=== PATIENT | male | born 1995 | race African-American/Black ===

== ENCOUNTER 2018-08-09 09:09 | Inpatient (IN) | payer OTHER ==
[2018-08-09] MEDS ORDERED: ONDANSETRON 4 MG/2 ML VIAL IVP STA (09:42)
[2018-08-09] MEDS ORDERED: SODIUM CHLORIDE 0.9% 1,000 ML IV STA (09:42)
[2018-08-09] MEDS ORDERED: PANTOPRAZOLE 40 MG/10 ML VIAL IVP STA (09:43)
--- NOTE | 2018-08-09 10:29 | XR ---
EXAMINATION TYPE: XR chest 2V DATE OF EXAM: 08/09/2018 HISTORY: pain. REFERENCE: NONE. FINDINGS: The lungs are clear. Pleural space are clear. The heart is not enlarged. The mediastinal co ntour is somewhat lobulated. It would be difficult to exclude a right-sided aortic arch based upon th is study. IMPRESSION: 1. NO ACUTE INTRATHORACIC ABNORMALITY. 2. IT WOULD BE DIFFICULT TO EXCLUDE A RIGHT-SIDED AORTIC ARCH.
--- NOTE | 2018-08-09 11:53 | ED ---
Chest Pain HPI - General Chief Complaint: Chest Pain Stated Complaint: Chest pain Time Seen by Provider: 08/09/18 09:18 Source: patient, EMS, RN notes reviewed, old records reviewed Mode of arrival: EMS Limitations: no limitations - History of Present Illness Initial Comments: Patient is a 23-year-old male presents emergency department today with multiple episodes of vomiting starting at midnight last night. He states that during that time he is having some episodes of chest pain. He states it persisted. He called EMS and arrives. Patient appears in no distress. Patient states that he had apple these last night for dinner and did have some alcoholic drinks. Patient states that he has had a history of acid reflux but states this pain lasted about different than typical acid reflux like pain. Patient states that he has had no significant past medical history. He denies any hematemesis. - Related Data Home Medications Medication Instructions Recorded Confirmed No Known Home Medications 08/09/18 08/09/18 Allergies Allergy/AdvReac Type Severity Reaction Status Date / Time No Known Allergies Allergy Verified 08/09/18 09:34 Review of Systems ROS Statement: Those systems with pertinent positive or pertinent negative responses have been documented in the HPI. ROS Other: All systems not noted in ROS Statement are negative. EKG Findings - EKG Comments: EKG Findings:: Sinus tachycardia, right arterial enlargement. T wave abnormality , consider inferior ischemia. Abnormal EKg. Vent rate 112 bpm. ME interval 120ms. 76 ms QRS duration. QTC 302 412 ms. Past Medical History Past Medical History: No Reported History History of Any Multi-Drug Resistant Organisms: None Reported Past Surgical History: No Surgical Hx Reported Past Psychological History: Anxiety Past Alcohol Use History: None Reported, Occasional Past Drug Use History: Marijuana General Exam - General Exam Comments Initial Comments: 23-year-old male. Alert and oriented. No distress. Limitations: no limitations General appearance: alert, in no apparent distress Head exam: Present: atraumatic, normocephalic, normal inspection Eye exam: Present: normal appearance, PERRL, EOMI. Absent: scleral icterus, conjunctival injection, periorbital swelling ENT exam: Present: normal exam Neck exam: Present: normal inspection. Absent: tenderness, meningismus, lymphadenopathy Respiratory exam: Present: normal lung sounds bilaterally. Absent: respiratory distress, wheezes, rales, rhonchi, stridor Cardiovascular Exam: Present: regular rate, normal rhythm, normal heart sounds. Absent: systolic murmur, diastolic murmur, rubs, gallop, clicks GI/Abdominal exam: Present: soft, normal bowel sounds. Absent: distended, tenderness, guarding, rebound, rigid Extremities exam: Present: normal inspection, full ROM, normal capillary refill. Absent: tenderness, pedal edema, joint swelling, calf tenderness Back exam: Present: normal inspection Neurological exam: Present: alert, oriented X3, CN II-XII intact Psychiatric exam: Present: normal affect, normal mood Course Vital Signs 08/09/18 08/09/18 08/09/18 09:28 09:30 10:30 Temperature 98.8 F Pulse Rate 107 H 105 H 97 Pulse Rate [ Pulse Oximetery ] Respiratory 18 18 18 Rate Blood Pressure 143/99 124/94 126/81 Blood Pressure [Right Arm] O2 Sat by Pulse 98 100 96 Oximetry 08/09/18 08/09/18 08/09/18 11:29 20:00 21:18 Temperature 98.0 F 98.0 F Pulse Rate 74 Pulse Rate [ 60 72 Pulse Oximetery ] Respiratory 18 18 18 Rate Blood Pressure 126/75 Blood Pressure 156/77 139/73 [Right Arm] O2 Sat by Pulse 98 96 95 Oximetry Chest Pain MDM - MDM Paper chart completed, patient placed inpatient for abnormal EKG, positive troponin. Disposition Clinical Impression: NSTEMI (non-ST elevated myocardial infarction), Nausea & vomiting Disposition: ADMITTED IP TO THIS HOSP Condition: Stable Time of Disposition: 23:50
[2018-08-09] MEDS ORDERED: HEPARIN SODIUM,PORCINE 5,000 UNIT/ML 1 ML VIAL IV ONE (21:37)
[2018-08-09] MEDS ORDERED: HEPARIN SODIUM,PORCINE 5,000 UNIT/ML 1 ML VIAL IV PRN (21:37)
[2018-08-09 22:58] VITALS: BMI 25.7
[2018-08-09] MEDS: HEPARIN SOD,PORK IN 0.45% NACL 25,000 UNIT in 0.45% NACL 1 250ML.BAG IV SCH (23:15)
[2018-08-09] MEDS: ASPIRIN 81 MG PO SCH (23:28)
[2018-08-10 00:52] LABS: Basophils % (A) 1 %; Eosinophils # (A) 0.1 k/uL (0-0.7); Eosinophils % (A) 1 %; HCT 43.8 % (39.0-53.0); Lymphocytes # (A) 1.1 k/uL (1.0-4.8); Lymphocytes % (A) 19 %; MCH 29.2 pg (25.0-35.0); MCV 91.5 fL (80.0-100.0); Mean Platelet Volume 7.5; Monocytes # (A) 0.4 k/uL (0-1.0); Monocytes % (A) 8 %; Neutrophils # (A) 3.9 k/uL (1.3-7.7); Neutrophils % (A) 69 %; Platelet Count 194 k/uL (150-450); RBC 4.79 m/uL (4.30-5.90); RDW 12.6 % (11.5-15.5); WBC 5.7 k/uL (3.8-10.6)
[2018-08-10 01:08] LABS: INR 1.2 (<1.2); Prothrombin Time 12.4 sec (9.0-12.0)
[2018-08-10] MEDS: HEPARIN SOD,PORK IN 0.45% NACL 25,000 UNIT in 0.45% NACL 1 250ML.BAG IV SCH (02:22)
--- NOTE | 2018-08-10 03:33 | HP ---
HISTORY AND PHYSICAL DATE OF ADMISSION: 08/09/2018 DATE OF SERVICE: 08/09/2018 PRESENTING COMPLAINT: Weak and tired. HISTORY OF PRESENTING COMPLAINT: This is a pleasant 23-year-old patient who follows with Dr. Cosme in [place]. The patient is in rather good health, exercises, goes to the gym. Last night patient had gone to eat at [employer], ate chicken wings with some barbecue sauce. Also had a couple of drinks and that he did around 9 o'clock, went to bed. At 12:30 pm this morning he started vomiting and in the next 3-4 hours he did vomit about 3 times quite a bit. In the morning decided to go into work and when he got there was feeling numb all over in his face, arms, legs, just kind of felt tired. Then asked his dad to bring him into the hospital. There was no precordial pain or shortness of breath. The patient was first taken to his physician's office where they did an EKG and he was sent down here. The patient was found to have some abnormal EKG changes. Troponin was 0.088 and he was put on IV heparin and admitted. Cardiology was told to be consulted from the ER. The patient just feels tired. No further symptoms when I saw him this evening. The computers have been down, cannot find another set of troponins which is being ordered. Computers have been down since this morning. REVIEW OF SYSTEMS: CONSTITUTIONAL: Tired. HEENT: None. RESPIRATORY: None. CARDIOVASCULAR: None. GASTROINTESTINAL: As above. GENITOURINARY: None. MUSCULOSKELETAL: None. DERMATOLOGIC: None. HEMATOLOGIC: None. LYMPHATICS: None. PSYCHIATRY none. NEUROLOGICAL: As above. All symptoms have resolved. Additionally, patient did have an Nepali sub around 3:00 pm, kept it down and simply feels hungry now. PAST MEDICAL HISTORY: None. SOCIAL HISTORY: Patient works for rescue team. Does marijuana 1 joint a day. Alcohol occasionally. Lives with a roommate. FAMILY HISTORY: Reviewed, noncontributory. HOME MEDICATIONS: None. ALLERGIES: None. PHYSICAL EXAMINATION: Vital signs on presentation, temperature 98.8, pulse 107, respiration 18, blood pressure 124/94, pulse ox 100 percent on room air. GENERAL APPEARANCE: Average build, lying in bed, comfortable. EYES: Pupils equal. Conjunctivae normal. HEENT: External appearance of ears and nose normal. Oral cavity normal. NECK: JVD not raised. Mass not palpable. Respiratory effort normal. LUNGS: Clear. CARDIOVASCULAR: 1st and 2nd sounds normal. No edema. ABDOMEN: Soft, nontender. Liver and spleen not palpable. LYMPHATICS: No lymph node palpable in neck and axilla. PSYCHIATRY: Alert and oriented x3. Mood and affect normal. NEUROLOGICAL: Pupils equal. Cranial nerves grossly intact. Power and sensation grossly intact. INVESTIGATIONS: As reviewed by me, EKG showed some pointed T-waves. Labs obtained from the nurse, as the computers have been down since this morning, white count 6.5, hemoglobin 15.5, platelets 193. Potassium 4.1, BUN 20, creatinine 1.19. ASSESSMENT: 1. This is a patient who vomited 4 times over the night, was feeling rather tired this morning, numbness all over and was found to have some EKG changes. Troponin was 0.088. This is a patient who at the baseline is extremely active, works out at the gym, and has not had any cardiac symptoms like palpitations, syncope, or chest pressure. His manifestations are most likely from dehydration from vomiting and troponin leak from the same. 2. Acute gastroenteritis, likely viral or food poisoning, self limiting. 3. Troponin leak likely from dehydration. 4. Need to rule out structural heart disease. We will do 2D echocardiogram. Cardiology was consulted from the ER. 5. Recreational marijuana use. PLAN: Care was discussed with the patient. Questions were answered. We will obtain more sets of troponin, 2D echocardiogram and Cardiology opinion. The patient was put on IV heparin in the ER. Will put the patient on a baby aspirin. Care was discussed. MMODL / IJN: [id number] /
[2018-08-10 05:30] LABS: Basophils % (A) 0 %; Eosinophils % (A) 1 %; HCT 54.3 % (39.0-53.0); HGB 17.6 gm/dL (13.0-17.5); Lymphocytes # (A) 0.5 k/uL (1.0-4.8); Lymphocytes % (A) 7 %; MCH 29.9 pg (25.0-35.0); MCHC 32.3 g/dL (31.0-37.0); MCV 92.6 fL (80.0-100.0); Mean Platelet Volume 8.6; Monocytes # (A) 0.5 k/uL (0-1.0); Monocytes % (A) 7 %; Neutrophils # (A) 6.4 k/uL (1.3-7.7); Neutrophils % (A) 85 %; Platelet Count 219 k/uL (150-450); RBC 5.87 m/uL (4.30-5.90); RDW 12.7 % (11.5-15.5); WBC 7.6 k/uL (3.8-10.6)
[2018-08-10 07:18] LABS: Basophils % (A) 0 %; Eosinophils % (A) 0 %; HCT 48.2 % (39.0-53.0); HGB 15.5 gm/dL (13.0-17.5); Lymphocytes # (A) 0.6 k/uL (1.0-4.8); Lymphocytes % (A) 9 %; MCH 29.8 pg (25.0-35.0); MCHC 32.1 g/dL (31.0-37.0); MCV 92.8 fL (80.0-100.0); Mean Platelet Volume 8.2; Monocytes # (A) 0.4 k/uL (0-1.0); Monocytes % (A) 6 %; Neutrophils # (A) 5.4 k/uL (1.3-7.7); Neutrophils % (A) 83 %; Platelet Count 193 k/uL (150-450); RDW 12.6 % (11.5-15.5); WBC 6.5 k/uL (3.8-10.6)
[2018-08-10 07:38] LABS: Basophils % (A) 1 %; Eosinophils # (A) 0.1 k/uL (0-0.7); Eosinophils % (A) 2 %; HCT 45.3 % (39.0-53.0); HGB 14.2 gm/dL (13.0-17.5); Lymphocytes # (A) 1.1 k/uL (1.0-4.8); Lymphocytes % (A) 23 %; MCH 29.8 pg (25.0-35.0); MCHC 31.3 g/dL (31.0-37.0); Mean Platelet Volume 8.3; Monocytes # (A) 0.5 k/uL (0-1.0); Monocytes % (A) 11 %; Neutrophils # (A) 2.8 k/uL (1.3-7.7); Neutrophils % (A) 61 %; Platelet Count 169 k/uL (150-450); RBC 4.77 m/uL (4.30-5.90); RDW 12.8 % (11.5-15.5); WBC 4.6 k/uL (3.8-10.6)
[2018-08-10 07:57] LABS: ALT 31 U/L (21-72); AST 32 U/L (17-59); Albumin 4.4 g/dL (3.5-5.0); Alkaline Phosphatase 59 U/L (38-126); Amylase 63 U/L (30-110); Anion Gap 10 mmol/L; Blood Urea Nitrogen 20 mg/dL (9-20); Calcium 9.5 mg/dL (8.4-10.2); Carbon Dioxide 25 mmol/L (22-30); Chloride 105 mmol/L (98-107); Glucose 82 mg/dL (74-99); Lipase 35 U/L (23-300); Potassium 4.1 mmol/L (3.5-5.1); Sodium 140 mmol/L (137-145); Total Bilirubin 1.2 mg/dL (0.2-1.3); Total Protein 7.2 g/dL (6.3-8.2)
[2018-08-10 08:01] LABS: Troponin I 0.088 ng/mL (0.000-0.034)
[2018-08-10 08:03] LABS: Creatine Kinase MB 1.6 ng/mL (0.0-2.4)
[2018-08-10 08:25] LABS: Albumin 3.7 g/dL (3.5-5.0); Calcium 9.2 mg/dL (8.4-10.2); Potassium 4.5 mmol/L (3.5-5.1); Total Bilirubin 0.7 mg/dL (0.2-1.3); Total Protein 6.3 g/dL (6.3-8.2)
[2018-08-10] MEDS: ASPIRIN 81 MG PO SCH (09:09)
--- NOTE | 2018-08-10 14:01 | P.CRDCN ---
History of Present Illness Consult date: 08/10/18 Chief complaint: Chest pain History of present illness: This is a pleasant 23-year-old gentleman with no significant past medical history who was in good fit and exercises on regular basis presented to the hospital complaining of nausea and vomiting as well as chest discomfort. The patient was in his usual state of health until last night when he ate dinner outside and went to bed around 10:00 last night but he woke up right after midnight complaining of nausea and vomiting. He did vomit at least 3 times according to him. Subsequently the patient went to sleep and woke up in the morning not feeling well. He was feeling weak, tired, fatigued, and 8 over his body. Beside that he was experiencing discomfort in the chest, as a sharp kind of discomfort, without any radiation to the arm or neck or shoulders and without any associated symptoms of sweating, or syncope. Because of that he decided to come to the emergency room. In the ER, the patient was found to be in acute renal failure. His creatinine was slightly incurvated. Also the troponin was checked and came in to be slightly abnormal and below 1. The EKG did not show any evidence of significant for ischemic ST or T-wave abnormalities beside sinus tachycardia. The patient was admitted to the hospital and he was started on aspirin as well as heparin. The patient is not aware of any prior cardiac history. No diabetes or hypertension or dyslipidemia. He smoked marijuana on a regular basis. No immediate family member with coronary artery disease. Past Medical History Past Medical History: No Reported History History of Any Multi-Drug Resistant Organisms: None Reported Past Surgical History: No Surgical Hx Reported Past Anesthesia/Blood Transfusion Reactions: No Reported Reaction Past Psychological History: Anxiety Past Alcohol Use History: None Reported, Occasional Past Drug Use History: Marijuana Medications and Allergies Home Medications Medication Instructions Recorded Confirmed Type No Known Home Medications 08/09/18 08/09/18 History Allergies Allergy/AdvReac Type Severity Reaction Status Date / Time No Known Allergies Allergy Verified 08/09/18 09:34 Physical Exam Vitals: Vital Signs Temp Pulse Resp BP Pulse Ox 08/10/18 12:00 70 20 132/73 97 08/10/18 08:00 98.2 F 62 17 127/61 100 08/10/18 04:00 97.9 F 71 18 121/79 99 08/09/18 23:54 72 18 08/09/18 23:51 98.0 F 72 18 139/73 95 08/09/18 21:18 98.0 F 72 18 139/73 95 08/09/18 20:00 98.0 F 60 18 156/77 96 Intake and Output 08/09/18 08/10/18 08/10/18 22:59 06:59 14:59 Intake Total 150 Balance 150 Intake: Oral 150 Other: Voiding Method Toilet Toilet # Voids 1 2 Weight 88.2 kg - Constitutional General appearance: no acute distress - Respiratory Respiratory: bilateral: CTA - Cardiovascular Rhythm: regular Heart sounds: normal: S1, S2 Results 08/10/18 06:41 08/10/18 06:41 Cardiac Enzymes 08/09/18 08/09/18 08/10/18 Range/Units 12:23 12:23 00:40 AST 32 (17-59) U/L CK-MB (CK-2) 1.6 (0.0-2.4) ng/mL Troponin I 0.088 H* 0.077 H* (0.000-0.034) ng/mL 08/10/18 08/10/18 Range/Units 06:41 06:41 AST 28 (17-59) U/L CK-MB (CK-2) (0.0-2.4) ng/mL Troponin I 0.047 H* (0.000-0.034) ng/mL Coagulation 08/10/18 Range/Units 00:40 PT 12.4 H (9.0-12.0) sec APTT 51.0 H (22.0-30.0) sec CBC 08/09/18 08/09/18 08/10/18 Range/Units 09:40 12:23 00:40 WBC 6.5 7.6 5.7 (3.8-10.6) k/uL RBC 5.20 5.87 4.79 (4.30-5.90) m/uL Hgb 15.5 17.6 H 14.0 D (13.0-17.5) gm/dL Hct 48.2 54.3 H 43.8 (39.0-53.0) % Plt Count 193 219 194 (150-450) k/uL 08/10/18 Range/Units 06:41 WBC 4.6 (3.8-10.6) k/uL RBC 4.77 (4.30-5.90) m/uL Hgb 14.2 (13.0-17.5) gm/dL Hct 45.3 (39.0-53.0) % Plt Count 169 (150-450) k/uL Comprehensive Metabolic Panel 08/09/18 08/10/18 Range/Units 12:23 06:41 Sodium 140 137 (137-145) mmol/L Potassium 4.1 4.5 (3.5-5.1) mmol/L Chloride 105 106 (98-107) mmol/L Carbon Dioxide 25 25 (22-30) mmol/L BUN 20 21 H (9-20) mg/dL Creatinine 1.19 1.37 H (0.66-1.25) mg/dL Glucose 82 86 (74-99) mg/dL Calcium 9.5 9.2 (8.4-10.2) mg/dL AST 32 28 (17-59) U/L ALT 31 24 (21-72) U/L Alkaline Phosphatase 59 40 (38-126) U/L Total Protein 7.2 6.3 (6.3-8.2) g/dL Albumin 4.4 3.7 (3.5-5.0) g/dL Current Medications Generic Name Dose Route Start Last Admin Trade Name Freq PRN Reason Stop Dose Admin Aspirin 81 mg 08/09/18 23:00 08/10/18 09:09 Aspirin PO 81 mg DAILY [facility] Administration Heparin Sodium (Porcine) 0 unit 08/09/18 21:37 Heparin IV PER PROTOCOL PRN Low PTT Protocol Heparin Sodium/Sodium Chloride 250 mls @ 9.97 mls/hr 08/09/18 21:45 08/10/18 02:22 25,000 unit/ Sodium Chloride IV 11 units/kg/hr .Q24H BRANDO 9.97 mls/hr Administration Protocol 11 UNITS/KG/HR Intake and Output 08/09/18 08/10/18 08/10/18 22:59 06:59 14:59 Intake Total 150 Balance 150 Intake: Oral 150 Other: Voiding Method Toilet Toilet # Voids 1 2 Weight 88.2 kg 08/10/18 06:41 08/10/18 06:41 Assessment and Plan Assessment: Assessment #1 nausea and vomiting which has improved #2 dehydration secondary to the above #3 acute renal failure secondary to the above #4 mildly abnormal cardiac enzymes. #5 chest discomfort seems to be atypical Plan #1 the chest discomfort could be related to the recurrent vomiting. #2 severe coronary artery disease is unlikely giving his age and the absence of any risk factors. #3 the abnormal troponin is likely secondary to acute renal failure #4 we'll continue the patient on the current medical regimen which include the heparin as well as aspirin #5 obtain an echocardiogram was Doppler #6 follow-up with the patient. Thank you for allowing us participate in his care and we will continue following up with the
--- NOTE | 2018-08-11 00:07 | PN ---
PROGRESS NOTE DATE OF SERVICE: 08/10/2018. PRESENTING COMPLAINT: Tired. INTERVAL HISTORY: This patient presented with abnormal EKG, some chest pain, some troponin leak. At this point felt to be from acute renal failure from profuse vomiting. The patient did tolerate some diet, had some short-lived sharp chest pain. Has been out of bed. The patient's family is at the bedside. REVIEW OF SYSTEMS: Done for constitutional, cardiovascular, GI, pulmonary; relevant findings as above. CURRENT MEDICATIONS: Include IV heparin, aspirin. PHYSICAL EXAMINATION: Temperature 98.2, pulse 72, respirations 17, blood pressure 127/61, pulse 100 percent on room air. GENERAL APPEARANCE: Lying in bed comfortable. EYES: Pupils equal. Conjunctivae normal. NECK: JVD not raised. Mass not palpable. Respiratory effort normal. LUNGS: Clear. CARDIOVASCULAR: 1st and 2nd heart sounds normal. ABDOMEN: Soft nontender. Liver and spleen not palpable. PSYCHIATRY: Alert and oriented x3. Mood and affect normal. INVESTIGATIONS: White count 4.6. BUN 21, creatinine 1.37. Troponin 0.08, 0.077, 0.047. ASSESSMENT: 1. Renal failure likely from dehydration from vomiting. 2. Acute viral gastroenteritis. May have caused an element of viral myocarditis, explaining his symptoms of positive troponins. 3. Positive troponin, can be from above. 4. Pending 2D echocardiogram. 5. Recreational marijuana use. PLAN: At this point, we will send off for UA to look for any abnormal cells in the UA. Also will do urine drug screen. 2D echocardiogram is pending. Care was discussed with the patient's mother and also Dr. Johnson earlier in the day. We will give patient IV fluids and repeat electrolytes in the morning. MMODL / IJN: [id number] /
[2018-08-11] MEDS: LACTATED RINGERS 1,000 ML IV SCH ×4 (00:30→23:57)
[2018-08-11 04:52] VITALS: RESP 16
[2018-08-11 06:44] LABS: Anion Gap 4 mmol/L; Blood Urea Nitrogen 15 mg/dL (9-20); Calcium 9.1 mg/dL (8.4-10.2); Carbon Dioxide 28 mmol/L (22-30); Chloride 107 mmol/L (98-107); Glucose 91 mg/dL (74-99); Sodium 139 mmol/L (137-145)
[2018-08-11 07:07] LABS: Basophils % (A) 1 %; Eosinophils # (A) 0.1 k/uL (0-0.7); Eosinophils % (A) 2 %; HCT 41.9 % (39.0-53.0); HGB 13.9 gm/dL (13.0-17.5); Lymphocytes # (A) 1.2 k/uL (1.0-4.8); Lymphocytes % (A) 36 %; MCH 30.5 pg (25.0-35.0); MCHC 33.3 g/dL (31.0-37.0); MCV 91.5 fL (80.0-100.0); Mean Platelet Volume 8.1; Monocytes # (A) 0.3 k/uL (0-1.0); Monocytes % (A) 10 %; Neutrophils # (A) 1.7 k/uL (1.3-7.7); Neutrophils % (A) 48 %; Platelet Count 173 k/uL (150-450); RBC 4.57 m/uL (4.30-5.90); RDW 12.5 % (11.5-15.5); WBC 3.5 k/uL (3.8-10.6)
[2018-08-11] MEDS: ASPIRIN 81 MG PO SCH (08:30)
--- NOTE | 2018-08-11 09:31 | P.PN ---
Subjective Progress Note Date: 08/11/18 Principal diagnosis: Abnormal cardiac enzymes This is a pleasant 23-year-old gentleman with no significant past medical history who was in good fit and exercises on regular basis presented to the hospital complaining of nausea and vomiting as well as chest discomfort. The patient was in his usual state of health until last night when he ate dinner outside and went to bed around 10:00 last night but he woke up right after midnight complaining of nausea and vomiting. He did vomit at least 3 times according to him. Subsequently the patient went to sleep and woke up in the morning not feeling well. He was feeling weak, tired, fatigued, and 8 over his body. Beside that he was experiencing discomfort in the chest, as a sharp kind of discomfort, without any radiation to the arm or neck or shoulders and without any associated symptoms of sweating, or syncope. Because of that he decided to come to the emergency room. In the ER, the patient was found to be in acute renal failure. His creatinine was slightly incurvated. Also the troponin was checked and came in to be slightly abnormal and below 1. The EKG did not show any evidence of significant for ischemic ST or T-wave abnormalities beside sinus tachycardia. The patient was admitted to the hospital and he was started on aspirin as well as heparin. The patient is not aware of any prior cardiac history. No diabetes or hypertension or dyslipidemia. He smoked marijuana on a regular basis. No immediate family member with coronary artery disease. On follow-up with the patient today, 08/11/2018, the patient continues to have mild chest discomfort about 2/10 in intensity. He continues to be on aspirin as well as heparin IV. An echocardiogram was performed and we'll follow-up on that. I discussed with the patient possible need for coronary angiogram Objective - Vital Signs Vital signs: Vital Signs Temp 97.5 F L 08/11/18 08:20 Pulse 78 08/11/18 08:20 Resp 16 08/11/18 08:20 BP 123/77 08/11/18 08:20 Pulse Ox 100 08/11/18 08:20 Intake & Output 08/10/18 08/11/18 08/11/18 18:59 06:59 18:59 Intake Total 150 640 Balance 150 640 Weight 88.2 kg Intake: Intake, IV Titration 400 Amount Heparin Sod,Pork in 0.45% 100 NaCl 25,000 unit In 0.45 % NaCl 1 250ml.bag @ 11 UNITS/KG/HR 9.97 mls/hr IV .Q24H BRANDO Rx#: [id number] Lactated Ringers 1,000 ml 300 @ 125 mls/hr IV .Q8H BRANDO Rx#:[id number] Oral 150 240 Other: Voiding Method Toilet # Voids 3 - Constitutional General appearance: Present: no acute distress - Respiratory Respiratory: bilateral: CTA - Cardiovascular Rhythm: regular Heart sounds: normal: S1, S2 - Labs CBC & Chem 7: 08/11/18 06:04 08/11/18 06:04 Labs: Abnormal Lab Results - Last 24 Hours (Table) 08/10/18 08/11/18 08/11/18 Range/Units 23:47 06:04 06:04 WBC 3.5 L (3.8-10.6) k/uL APTT 50.0 H (22.0-30.0) sec Creatinine 1.30 H (0.66-1.25) mg/dL Assessment and Plan Assessment: Assessment #1 nausea and vomiting which has improved #2 dehydration secondary to the above #3 acute renal failure secondary to the above #4 mildly abnormal cardiac enzymes. #5 chest discomfort seems to be atypical Plan #1 the chest discomfort could be related to the recurrent vomiting. #2 severe coronary artery disease is unlikely giving his age and the absence of any risk factors. #3 continue the current medical regimen #4 follow-up on the echocardiogram #5 possible coronary angiogram in the next 24 hours Thank you for allowing us participate in his care and we will continue following up with the
--- NOTE | 2018-08-11 10:01 | ECHOF ---
Referral Reason:cp MEASUREMENTS -------- HEIGHT: 185.4 cm WEIGHT: 88.0 kg BP: 137/75 RVIDd: 3.1 cm (< 3.3) IVSd: 1.2 cm (0.6 - 1.1) LVIDd: 5.2 cm (3.9 - 5.3) LVPWd: 1.1 cm (0.6 - 1.1) IVSs: 1.5 cm LVIDs: 3.6 cm LVPWs: 1.7 cm LA Diam: 4.0 cm (2.7 - 3.8) LAESV Index (A-L): 39.23 ml/m Ao Diam: 3.2 cm (2.0 - 3.7) AV Cusp: 2.7 cm (1.5 - 2.6) MV EXCURSION: 18.829 mm (> 18.000) MV EF SLOPE: 159 mm/s (70 - 150) EPSS: 0.8 cm MV E Isaías: 0.87 m/s MV DecT: 271 ms MV A Isaías: 0.53 m/s MV E/A Ratio: 1.64 RAP: 5.00 mmHg RVSP: 20.18 mmHg FINDINGS -------- Sinus rhythm. This was a technically excellent study. The left ventricular size is normal. There is borderline concentric left ventricular hypertrophy. Overall left ventricular systolic function is normal with, an EF between 60 - 65 %. The right ventricle is normal in size. LA is moderately dilated 34-39 ml/m2 The right atrium is normal in size. The aortic valve is trileaflet and appears structurally normal. The mitral valve is normal. The tricuspid valve appears structurally normal. Trace/mild (physiologic) pulmonic regurgitation. The aortic root size is normal. Normal inferior vena cava with normal inspiratory collapse consistent with estimated right atrial pre ssure of 5 mmHg. There is no pericardial effusion. CONCLUSIONS -------- 1. Sinus rhythm. 2. This was a technically excellent study. 3. The left ventricular size is normal. 4. There is borderline concentric left ventricular hypertrophy. 5. Overall left ventricular systolic function is normal with, an EF between 60 - 65 %. 6. The right ventricle is normal in size. 7. LA is moderately dilated 34-39 ml/m2 8. The right atrium is normal in size. 9. The aortic valve is trileaflet and appears structurally normal. 10. The mitral valve is normal. 11. The tricuspid valve appears structurally normal. 12. Trace/mild (physiologic) pulmonic regurgitation. 13. The aortic root size is normal. 14. Normal inferior vena cava with normal inspiratory collapse consistent with estimated right atrial pressure of 5 mmHg. 15. There is no pericardial effusion. DAIRY [employer] F[employer] MANAGER: Debi Carrera RDCS
[2018-08-11] MEDS ORDERED: IV FLUID CONTINUATION 1,000 ML IV ONE (10:56)
[2018-08-11 11:01] LABS: Appearance,Urine Clear (Clear); Bilirubin,Urine Negative (Negative); Blood,Urine Negative (Negative); Color,Urine Yellow; Glucose,Urine (UA) Negative (Negative); Ketones,Urine Negative (Negative); Leukocyte Esterase,Urine Negative (Negative); Nitrite,Urine Negative (Negative); Protein,Urine Negative (Negative); Specific Gravity,Urine 1.022 (1.001-1.035)
[2018-08-11] MEDS ORDERED: HEPARIN SODIUM 1,000 UN/ML (10ML VL) ONE (11:01)
[2018-08-11] MEDS ORDERED: MIDAZOLAM 2 MG/2 ML VIAL IV ONE (11:13)
[2018-08-11] MEDS ORDERED: METOPROLOL TARTRATE 5 MG/5 ML VIAL IVP ONE ×2 (11:16→11:17)
[2018-08-11] MEDS ORDERED: LIDOCAINE 1% INJ 10MG/ML (20 ML MDV) SQ ONE (11:18)
[2018-08-11] MEDS: VERAPAMIL SYRINGE (5 MG/10 ML) INTRAARTER ONE ×2 (11:19→11:23)
[2018-08-11] MEDS ORDERED: HEPARIN SODIUM 1,000 UN/ML (10ML VL) IV ONE (11:19)
[2018-08-11] MEDS ORDERED: fentaNYL (PF) 50 MCG/ML 2 ML AMP ONE (11:19)
[2018-08-11] MEDS ORDERED: fentaNYL (PF) 50 MCG/ML 2 ML AMP IV ONE ×2 (11:20→11:24)
[2018-08-11] MEDS ORDERED: IOPAMIDOL-370 125ML BTL INJ ONE (11:27)
[2018-08-11] MEDS ORDERED: RX INFO: IV CONTRAST WAS GIVEN 1 EACH MISC MISCELLANE PRN (11:35)
[2018-08-11] MEDS ORDERED: SODIUM CHLORIDE 0.9% 1,000 ML IV SCH (11:45)
--- NOTE | 2018-08-11 12:05 | CC ---
CARDIAC CATHETERIZATION REPORT DATE OF SERVICE: August 11, 2018 PERFORMING PHYSICIAN: Raad Johnson MD, feed crusher. PROCEDURE PERFORMED: 1. Selective right and left coronary angiogram. 2. Left heart catheterization. INDICATION: This is a pleasant 23-year-old gentleman who does smoke marijuana presented to the hospital with chest discomfort and he was ruled in for acute non-ST elevation myocardial infarction. He continues to have chest discomfort and ischemic EKG changes and because of that, a heart catheterization was advised. APPROACH: Right radial artery. COMPLICATION: None. LEVEL OF SEDATION: Moderate with sedation length of 14 minutes. PROCEDURE DESCRIPTION: After obtaining an informed consent, the patient was brought to the cardiac laborer demolition. The right radial artery was cannulated using micropuncture technique, the micropuncture wire passed easily then I placed a 6-Bermudian sheath in the right radial artery. After that, I did selective right and left coronary angiogram using JR4 and JL3.5 catheters. After that I did left heart catheterization using the JR4 catheter which flipped into the LV then I did pullback across aortic valve. The procedure was completed without any complication. SELECTIVE CORONARY ANGIOGRAM: 1. The right coronary artery is a large caliber vessel and is a dominant vessel and it is angiographically normal. 2. The left main is angiographically normal. It bifurcates into left circumflex and left anterior descending artery. 3. The left circumflex is a large caliber vessel. It is a codominant vessel. The proximal circumflex is normal. The mid circumflex is normal and gives rise into first and second OM branches both are angiographically normal. The circumflex is normal distally and bifurcates into PDA and PLV branches both are angiographically normal. 4. The LAD: The proximal LAD appeared to be angiographically normal. The mid LAD is normal and gives rise into the first diagonal branch which appeared to be angiographically normal. The LAD distally appeared to be angiographically normal. HEMODYNAMICS: The left ventricular end-diastolic pressure was 12 mmHg and no significant gradient across the aortic valve. CONCLUSION: 1. Normal coronary angiogram. 2. Normal left ventricular end-diastolic pressure. MMODL / IJN: [id number] /
--- NOTE | 2018-08-11 12:11 | LTR ---
August 11, 2018 Re: Salvatore Castellanos Dear Dr. Cosme: Mr. Salvatore Castellanos presented to [facility] with chest discomfort and ruled in for acute [id number] myocardial infarction. He underwent heart catheterization and that revealed normal coronaries. Thank you for allowing me to participate in his care and please do not hesitate to call if you have any question or concern. Sincerely, MD TRAVIS Hall / CHRIS: [phone] /
[2018-08-11 18:18] LABS: Urine Alcohol Negative (Negative); Urine Barbiturate Negative (Negative); Urine Cocaine Negative (Negative); Urine Methadone Negative (Negative); Urine Opiates Negative (Negative); Urine Phencyclidine Negative (Negative)
--- NOTE | 2018-08-12 03:26 | PN ---
PROGRESS NOTE DATE OF SERVICE: August 11, 2018. PRESENTING COMPLAINT: Tired. INTERVAL HISTORY: Patient presented with episode of severe vomiting following a meal, then with chest pain. There was some troponin leak. 2D echocardiogram was unremarkable. The patient underwent a cardiac catheterization today that was unremarkable. Feels better. REVIEW OF SYSTEMS: Done for constitutional, cardiovascular, GI, pulmonary; relevant findings as above. CURRENT MEDICATIONS: Reviewed, IV fluids. PHYSICAL EXAMINATION: VITAL SIGNS: Temperature afebrile, pulse 80, respiration 16, blood pressure 132/63, pulse ox 99% on room air. GENERAL APPEARANCE: Lying in bed comfortable. EYES: Pupils equal. Conjunctivae normal. NECK: JVD not raised. Mass not palpable. RESPIRATORY: Effort normal. LUNGS are clear. CARDIOVASCULAR: First and second sounds normal. No edema. ABDOMEN: Soft, nontender. Liver and spleen not palpable. PSYCHIATRY: Alert and oriented x3. Mood and affect normal. INVESTIGATIONS: White count 3.5, hemoglobin 13.9, potassium 4.0, BUN 15, creatinine 1.30. Urine drug screen positive for cannabinoids. ASSESSMENT: 1. Renal failure likely from dehydration from vomiting. 2. Acute viral gastroenteritis. 3. Possible viral myocarditis. 4. Recreational marijuana use. PLAN: Will give the patient another 24 hours of IV fluids to make sure his creatinine comes down. Care was discussed with the patient's parents, with the patient and with Dr. Johnson. The patient may have had a mild viral myocarditis. Overall doing much better now. MMODL / IJN: [id number] /
[2018-08-12 06:24] LABS: HCT 42.2 % (39.0-53.0); HGB 13.8 gm/dL (13.0-17.5); MCHC 32.8 g/dL (31.0-37.0); MCV 91.5 fL (80.0-100.0); Mean Platelet Volume 7.9; Platelet Count 168 k/uL (150-450); RBC 4.61 m/uL (4.30-5.90); RDW 12.6 % (11.5-15.5); WBC 4.1 k/uL (3.8-10.6)
[2018-08-12 06:34] LABS: Anion Gap 3 mmol/L; Blood Urea Nitrogen 10 mg/dL (9-20); Calcium 9.2 mg/dL (8.4-10.2); Carbon Dioxide 29 mmol/L (22-30); Chloride 105 mmol/L (98-107); Glucose 87 mg/dL (74-99); Potassium 4.2 mmol/L (3.5-5.1); Sodium 137 mmol/L (137-145)
[2018-08-12] MEDS: LACTATED RINGERS 1,000 ML IV SCH (08:10)
[2018-08-12] MEDS: ASPIRIN 81 MG PO SCH (08:11)
[2018-08-12 08:12] VITALS: BP 136/71; PULSE 63; TEMP 96.6
[2018-08-12 08:43] LABS: Eosinophils # (M) 0.04 k/uL (0-0.7); Lymphocytes # (M) 1.89 k/uL (1.0-4.8); Monocytes # (M) 0.33 k/uL (0-1.0); Neutrophils # (M) 1.85 k/uL (1.3-7.7); Neutrophils % (M) 45 %; Nucleated Red Blood Cells 0 /100 WBC (0-0); Total Cells Counted 100
[2018-08-12 08:44] LABS: Polychromasia Present
--- NOTE | 2018-08-12 09:29 | P.PN ---
Subjective Progress Note Date: 08/12/18 Principal diagnosis: Abnormal cardiac enzymes This is a pleasant 23-year-old gentleman with no significant past medical history who was in good fit and exercises on regular basis presented to the hospital complaining of nausea and vomiting as well as chest discomfort. The patient was in his usual state of health until last night when he ate dinner outside and went to bed around 10:00 last night but he woke up right after midnight complaining of nausea and vomiting. He did vomit at least 3 times according to him. Subsequently the patient went to sleep and woke up in the morning not feeling well. He was feeling weak, tired, fatigued, and 8 over his body. Beside that he was experiencing discomfort in the chest, as a sharp kind of discomfort, without any radiation to the arm or neck or shoulders and without any associated symptoms of sweating, or syncope. Because of that he decided to come to the emergency room. In the ER, the patient was found to be in acute renal failure. His creatinine was slightly incurvated. Also the troponin was checked and came in to be slightly abnormal and below 1. The EKG did not show any evidence of significant for ischemic ST or T-wave abnormalities beside sinus tachycardia. The patient was admitted to the hospital and he was started on aspirin as well as heparin. He underwent a heart catheterization and that revealed normal coronaries. On follow-up with the patient today, he seems to be asymptomatic. He can be discharged home. Objective - Vital Signs Vital signs: Vital Signs Temp 96.6 F L 08/12/18 08:10 Pulse 63 08/12/18 08:10 Resp 16 08/12/18 08:10 BP 136/71 08/12/18 08:10 Pulse Ox 100 08/12/18 08:10 Intake & Output 08/11/18 08/12/18 08/12/18 18:59 06:59 18:59 Intake Total 130 1480 Output Total 1725 350 Balance -1595 1130 Weight 87.5 kg Intake: IV 100 Intake, IV Titration 30 1000 Amount Heparin Sod,Pork in 0.45% 30 0 NaCl 25,000 unit In 0.45 % NaCl 1 250ml.bag @ 11 UNITS/KG/HR 9.97 mls/hr IV .Q24H [facility] Rx#: [id number] Lactated Ringers 1,000 ml 1000 @ 125 mls/hr IV .Q8H [facility] Rx#:[id number] Oral 480 Output: Urine 1725 350 Other: Voiding Method Toilet Toilet # Voids 1 - Constitutional General appearance: Present: no acute distress - Respiratory Respiratory: bilateral: CTA - Cardiovascular Rhythm: irregularly irregular Heart sounds: normal: S1, S2 - Labs CBC & Chem 7: 08/12/18 05:27 08/12/18 05:27 Labs: Abnormal Lab Results - Last 24 Hours (Table) 08/11/18 Range/Units 10:44 U Cannabinoids Screen Positive H (Negative) ng/mL Assessment and Plan Assessment: Assessment #1 nausea and vomiting which has improved #2 dehydration secondary to the above #3 acute renal failure secondary to the above #4 mildly abnormal cardiac enzymes. #5 chest discomfort seems to be atypical Plan #1 the patient underwent a heart catheterization and that revealed normal coronaries #2 from the cardiac vascular standpoint of view he can be discharged home
--- NOTE | 2018-08-12 20:50 | P.DS ---
Providers Date of admission: 08/09/18 14:30 Expected date of discharge: 08/12/18 Attending physician: Yeison Najera Dr. Sheet. Consults: 08/09/18 22:49 Consult Physician Routine Consulting Provider: Raad Johnson Consult Reason/Comments: abnormal troponins Do you want consulting provider notified?: Yes Primary care physician: Javier Cosme Hospital Course: Final Diagnoses: -Chest pain, status post cardiac cath reporting normal coronaries. Possible viral myocarditis. -Acute renal failure secondary to dehydration from vomiting -Acute viral gastroenteritis -Recreational marijuana use Hospital course: This is a 23-year-old gentleman admitted with nausea, vomiting , chest pain, elevated creatinine. Abnormal troponin, 2-D echo unremarkable. EKG sinus tachycardia. Evaluated by cardiology.Underwent cardiac catheterization , reporting normal coronaries. Renal function improved. Maintained on IV fluid hydration with significant clinical improvement. Cleared by cardiology for discharge. Patient is being discharged home in a stable condition with guarded prognosis,pending final DC recommendations from cardiology . PHYSICAL EXAM: GENERAL: Alert and oriented 3, no acute distress CARDIOVASCULAR: S1, S2 muffled. No murmur RESPIRATION: Breath sounds diminished in the bases. No rhonchi or crackles. No bronchial breathing. ABDOMEN: Soft, nontender . No guarding. no masses palpable. Bowel sounds heard. NERVOUS SYSTEM: No focal deficits. The impression and plan of care has been dictated as directed. : I performed a history and examination of this patient, discussed the same with the dictator. I agree with the dictator's note ,documented as a scribe. Any additional findings or plans will be noted. Time taken: 35 minutes Patient Condition at Discharge: Stable Plan - Discharge Summary Discharge Rx Participant: No New Discharge Prescriptions: No Action No Known Home Medications Discharge Medication List No Known Home Medications 08/09/18 [History] Follow up Appointment(s)/Referral(s): Raad Johnson MD [STAFF PHYSICIAN] - 08/19/18 1:15 pm (Saturday) Ashutosh Sutton MD [STAFF PHYSICIAN] - 08/18/18 9:45 am (Saturday) Ambulatory/Diagnostic Orders: Basic Metabolic Panel [LAB.AMB] Time Frame: 3 Days, Location: None Selected Patient Instructions/Handouts: *Surgery [facility] - After Heart Catheterization - Joy Operator Instructions, Left Heart Catheterization (DC) Discharge Disposition: HOME SELF-CARE
== END 2018-08-12 10:44 | disposition home or self-care (01) | DRG 287 ==
LOC: EC 09:09 → 3SCARD 14:30
PROVIDERS: ADMIT Hospitalist; ATTEND Hospitalist
PROC: B2111ZZ Fluoroscopy of Multiple Coronary Arteries using Low Osmolar Contrast (ICD-10-PCS; 2018-08-11)
PROC: 4A023N7 Measurement of Cardiac Sampling and Pressure, Left Heart, Percutaneous Approach (ICD-10-PCS; principal; 2018-08-11 10:56)
DX: I40.0 Infective myocarditis (principal); N17.9 Acute kidney failure, unspecified; E86.0 Dehydration; A08.4 Viral intestinal infection, unspecified; B97.89 Other viral agents as the cause of diseases classified elsewhere; K21.9 Gastro-esophageal reflux disease without esophagitis; Z86.59 Personal history of other mental and behavioral disorders
CPT/HCPCS: 71046; 80048; 80053; 80306; 81003; 82150; 82550; 82553; 83690; 84484; 85025; 85610; 85730; 93306; 93458; 99285